=== PATIENT | male | born 1980 | race Caucasian/White ===

== ENCOUNTER 2024-01-19 13:48 | Inpatient (IN) | payer OTHER ==
[2024-01-19] MEDS ORDERED: LOPERAMIDE HCL 2 MG CAPSULE PO PRN (15:25)
[2024-01-19] MEDS ORDERED: DICYCLOMINE HCL 10 MG CAPSULE PO PRN (15:25)
[2024-01-19] MEDS ORDERED: NALOXONE HCL 0.4 MG/ML VIAL IM PRN (15:25)
[2024-01-19] MEDS ORDERED: guaiFENesin 600 MG TABLET.ER (FP) PO PRN (15:25)
[2024-01-19] MEDS ORDERED: MAGNESIUM HYDROX 2400MG/30ML ORAL SUSPENSION 30 ML CUP PO PRN (15:25)
[2024-01-19] MEDS ORDERED: IBUPROFEN 400 MG TABLET (FP) PO PRN (15:25)
[2024-01-19] MEDS ORDERED: BENZOCAINE/MENTHOL (CHLORASEPTIC ) LOZENGE MM PRN (15:25)
[2024-01-19] MEDS ORDERED: ONDANSETRON *ODT* 4 MG TABLET SL PRN (15:25)
[2024-01-19] MEDS ORDERED: BISMUTH SUBSALICYLATE 262 MG/15 ML BTL PO PRN (15:25)
[2024-01-19] MEDS ORDERED: hydrOXYzine PAMOATE 25 MG CAPSULE (FP) PO PRN (15:25)
[2024-01-19] MEDS ORDERED: BENZONATATE 200 MG CAPSULE PO PRN (15:25)
[2024-01-19] MEDS ORDERED: NALOXONE (NARCAN) HCL 4 MG/0.1 ML SPRAY NS PRN (15:25)
[2024-01-19] MEDS ORDERED: POLYETHYLENE GLYCOL (HEALTHYLAX) 3350 17 GM PACKET PO PRN (15:25)
[2024-01-19] MEDS ORDERED: ALBUTEROL SO4 HFA INHALER IH PRN (15:29)
[2024-01-19] MEDS ORDERED: PRENATAL VITAMINS W/ FOLIC ACID TABLET (FP) PO ONE (16:27)
[2024-01-19] MEDS ORDERED: methaDONE HCL 10 MG TABLET (FOR DETOX USE ONLY) ONE (16:27)
[2024-01-19] MEDS: methaDONE HCL 10 MG TABLET PO ONE (16:33)
[2024-01-19] MEDS: PRENATAL VITAMINS W/ FOLIC ACID TABLET (FP) PO SCH (16:34)
[2024-01-19] MEDS ORDERED: chlordiazePOXIDE HCL 25 MG CAPSULE ONE (17:26)
[2024-01-19] MEDS ORDERED: methaDONE HCL 10 MG TABLET PO PRN (17:26)
[2024-01-19] MEDS: chlordiazePOXIDE HCL 25 MG CAPSULE PO SCH (17:48)
[2024-01-19] MEDS: NICOTINE 14 MG/24 HOURS TOPICAL PATCH TD SCH (18:33)
[2024-01-19] MEDS: cloNIDine HCL 0.1 MG TABLET PO SCH (18:35)
[2024-01-19] MEDS: MELATONIN 5 MG TABLETS PO SCH (22:39)
[2024-01-19] MEDS: THIAMINE 100 MG TABLET PO SCH (22:39)
[2024-01-20] MEDS: IBUPROFEN 600 MG TABLET (FP) PO PRN (05:55)
[2024-01-20] MEDS: methaDONE 40 MG, methaDONE 10 MG PO ONE (10:55)
[2024-01-20 15:17] LABS: CHLORIDE 104 mmol/L (98-107); SODIUM 138 mmol/L (136-145)
[2024-01-20 15:19] LABS: HEMATOCRIT 36.8 % (35.4-49); HEMOGLOBIN 12.3 GM/dL (11.7-16.9); MCHC 33.5 g/dl (32.0-35.9); MEAN CELL VOLUME 86.7 fl (80-96); MEAN PLT VOLUME 7.6 fl (7.5-11.1); PLATELET COUNT 280 10^3/uL (134-434); RBC 4.25 M/mm3 (4.00-5.60); RDW 14.9 % (11.9-15.9); WHITE BLOOD COUNT 7.8 K/mm3 (4.0-10.0)
[2024-01-20 15:24] LABS: CALCIUM 8.7 mg/dL (8.5-10.1)
[2024-01-20 15:25] LABS: ANION GAP 5 mmol/L (4-13); BLOOD UREA NITROGEN 11.3 mg/dL (7-18); CO2 30 mmol/L (21-32)
[2024-01-20 15:26] LABS: GLUCOSE,RANDOM 100 mg/dL (74-106)
[2024-01-20 15:27] LABS: SGPT/ALT 20 U/L (13-61)
[2024-01-20 15:28] LABS: BILIRUBIN,TOTAL 0.3 mg/dL (0.2-1); CREATININE 0.8 mg/dL (0.55-1.3); SGOT/AST 25 U/L (15-37); TOT PROT 5.8 g/dl (6.4-8.2)
[2024-01-20 15:30] LABS: ALK PHOS 79 U/L (45-117)
[2024-01-20] MEDS: LACTULOSE 20 GM/30 ML UDC (FOR ORAL USE ONLY) PO SCH (22:24)
[2024-01-20] MEDS: METHOCARBAMOL 500 MG TABLET PO PRN (22:27)
[2024-01-21] MEDS ORDERED: cloNIDine HCL 0.1 MG TABLET PO PRN
[2024-01-21] MEDS: chlordiazePOXIDE HCL 25 MG CAPSULE PO SCH (06:03)
[2024-01-21] MEDS: methaDONE 40 MG, methaDONE 20 MG PO ONE (10:26)
[2024-01-21] MEDS: chlordiazePOXIDE HCL 25 MG CAPSULE PO PRN (17:07)
[2024-01-21] MEDS: MAG HYDROX/AL HYDROX/SIMETH 30 ML UNIT-DOSE CUP PO PRN (22:18)
[2024-01-22] MEDS ORDERED: chlordiazePOXIDE HCL 10 MG CAPSULE PO PRN
[2024-01-22] MEDS: chlordiazePOXIDE HCL 10 MG CAPSULE PO SCH (05:16)
[2024-01-22] MEDS: ACETAMINOPHEN 325 MG TABLET (FP) PO PRN (07:51)
[2024-01-22] MEDS: methaDONE 40 MG, methaDONE 30 MG PO ONE (09:33)
[2024-01-23] MEDS: chlordiazePOXIDE HCL 10 MG CAPSULE PO SCH (05:22)
[2024-01-23] MEDS: methaDONE HCL 40 MG DISPERSABLE TABLET PO ONE (09:51)
[2024-01-23 20:37] VITALS: RESP 16
[2024-01-24] MEDS: chlordiazePOXIDE HCL 10 MG CAPSULE PO ONE (05:13)
[2024-01-24] MEDS: methaDONE 80 MG, methaDONE 10 MG PO ONE (09:18)
[2024-01-24 12:14] VITALS: BP 121/79; PULSE 85; TEMP 97.6
== END 2024-01-24 10:11 | disposition home or self-care (01) | DRG 773 ==
LOC: YASAS 13:48 → Y6N 15:36
PROVIDERS: ADMIT Allergy & Immunology; ATTEND Surgery
PROC: HZ2ZZZZ Detoxification Services for Substance Abuse Treatment (ICD-10-PCS; principal; 2024-01-19)
DX: F11.23 Opioid dependence with withdrawal (principal); F10.230 Alcohol dependence with withdrawal, uncomplicated; F14.20 Cocaine dependence, uncomplicated; F17.210 Nicotine dependence, cigarettes, uncomplicated; F41.9 Anxiety disorder, unspecified; J45.20 Mild intermittent asthma, uncomplicated; R79.89 Other specified abnormal findings of blood chemistry; R63.4 Abnormal weight loss; Z68.20 Body mass index [BMI] 20.0-20.9, adult
CPT/HCPCS: 36415; 80053; 80305; 80307; 82140; 85027; 86780; 93005; 93010